=== PATIENT | female | born 1965 | race Caucasian/White ===

== ENCOUNTER 2020-11-16 10:58 | Inpatient (IN) | payer MEDICAID ==
[~2020-11-16] VITALS: Ht 167.6 cm; Wt 110.0 kg
[~2020-11-16 10:58] MED LIST: AMLO-257 PO; ARIP30TA PO; CHLO100T31 PO; LITH8SOL6 PO; VALP250S23 PO
[2020-11-16] MEDS ORDERED: TUBERCULIN, PURIFIED PROTEIN DERIVATIVE 5 TU/0.1 ML SYRINGE ID ONE (12:30)
[2020-11-16] MEDS ORDERED: OLANZapine 5 MG RAPDIS TABLET PO PRN (12:30)
[2020-11-16] MEDS ORDERED: GuaiFENesin/D-METHORPHAN [SUGAR-FREE] 200-20MG/10 ML SYRUP UDCUP PO PRN (12:30)
[2020-11-16] MEDS ORDERED: LOPERAMIDE HCL 2 MG CAPSULE PO PRN (12:30)
[2020-11-16] MEDS ORDERED: PROMETHAZINE HCL 25 MG TABLET PO PRN (12:30)
[2020-11-16] MEDS ORDERED: HydrOXYzine PAMOATE 50 MG CAPSULE PO PRN (12:30)
[2020-11-16 12:59] LABS: GLUCOMETER DEV NAME(LOC) POC.BV
[2020-11-16] MEDS ORDERED: PNEUMOCOCCAL VACCINE POLYVALENT 0.5 ML VIAL [PPSV23] IM. ONE (14:45)
[2020-11-16] MEDS: ACETAMINOPHEN 325 MG TABLET PO PRN (15:43)
[2020-11-16] MEDS: TRIHEXYPHENIDYL HCL 2 MG TABLET PO SCH (16:13)
[2020-11-16] MEDS: THIAMINE 100 MG TABLET PO SCH (16:13)
[2020-11-16] MEDS: CarBAMazepine 200 MG TABLET PO SCH (16:13)
[2020-11-16 16:20] VITALS: BP 140/79
[2020-11-16] MEDS: MELATONIN 5 MG TABLET PO SCH (20:10)
[2020-11-16] MEDS: HALOPERIDOL 5 MG TABLET PO SCH (20:10)
[2020-11-16] MEDS ORDERED: OLANZapine 5 MG RAPDIS TABLET PO SCH (21:00)
[2020-11-16] MEDS: ZOLPIDEM TARTRATE 10 MG TABLET PO PRN (22:24)
[2020-11-17 03:26] VITALS: BP 129/69
[2020-11-17 08:00] LABS: BASOPHILS % (AUTO) 0.4 % (0.0-2.0); EOSINOPHILS % (AUTO) 3.7 % (1.0-6.0); HEMATOCRIT 37.8 % (36-46); HEMOGLOBIN 12.8 g/dL (12.0-16.0); LYMPHOCYTES % (AUTO) 37.6 % (22.0-44.0); MEAN CORPUSCULAR HEMOGLOBIN 31.5 pg (26.0-34.0); MEAN CORPUSCULAR VOLUME 93 fL (80-100); MONOCYTES # (AUTO) 0.4 K/uL (0.1-1.0); MONOCYTES % (AUTO) 8.3 % (2.0-9.0); NEUTROPHILS # (AUTO) 2.7 K/uL (1.8-7.7); PLATELET COUNT (AUTO) 200 K/uL (150-450); RED BLOOD CELL COUNT(AUTO) 4.06 MIL/uL (4.00-5.20); RED CELL DISTRIBUTION WIDTH 12.5 % (11.5-14.5)
[2020-11-17] MEDS: TRIHEXYPHENIDYL HCL 2 MG TABLET PO SCH ×3 (08:07→16:06)
[2020-11-17] MEDS: OMEGA-3/DHA/EPA/FISH OIL 1,000 MG CAPSULE PO SCH (08:07)
[2020-11-17] MEDS: THIAMINE 100 MG TABLET PO SCH ×2 (08:07→16:06)
[2020-11-17] MEDS: CarBAMazepine 200 MG TABLET PO SCH ×2 (08:07→16:06)
[2020-11-17] MEDS: NALTREXONE HCL 50 MG TABLET PO SCH (08:07)
[2020-11-17] MEDS: MULTIVITAMINS WITH MINERALS, THERAPEUTIC TABLET PO SCH (08:11)
[2020-11-17] MEDS: FOLIC ACID 1 MG TABLET PO SCH (08:11)
[2020-11-17 08:16] LABS: HEMOGLOBIN A1C 5.2 % (3.8-5.6)
[2020-11-17 08:27] VITALS: BP 147/83
[2020-11-17 08:30] LABS: ALANINE AMINOTRANSFERASE 22 U/L (12-78); ALBUMIN 3.6 g/dL (3.4-5.0); ALKALINE PHOSPHATASE 99 U/L (46-116); ANION GAP 12 mmol/L (8-16); ASPARTATE AMINOTRANSFERASE 19 U/L (15-37); BILIRUBIN,TOTAL 0.3 mg/dL (0.1-1.0); CALCIUM, TOTAL 8.3 mg/dL (8.8-10.5); CARBON DIOXIDE 22 mmol/L (22-29); CHLORIDE 101 mmol/L (98-107); CHOL/HDL RATIO 3.9 (3.9-5.7); CHOLESTEROL 194 mg/dL (131-200); CREATININE 0.46 mg/dL (0.60-1.30); FREE T4 (FREE THYROXINE) 1.06 ng/dL (0.76-1.46); GLOMERULAR FILTR. RATE CALC > 60 mL/min (>60); GLUCOSE,RANDOM 147 mg/dL (70-110); HDL CHOLESTEROL 50 mg/dL (40-60); LDL CHOL (CALC.) 133 mg/dL (0-130); POTASSIUM 3.7 mmol/L (3.5-5.1); SODIUM SERUM 135 mmol/L (136-145); THYROID STIMULATING HORMONE 1.55 uIU/mL (0.36-3.74); TOTAL PROTEIN, SERUM 6.9 g/dL (6.4-8.2); TRIGLYCERIDES 55 mg/dL (15-150); UREA NITROGEN, BLOOD 7 mg/dL (7-18)
[2020-11-17] MEDS: MAGNESIUM HYDROXIDE SUSPENSION 30 ML UDCUP PO PRN (12:46)
[2020-11-17] MEDS ORDERED: OLANZapine 5 MG RAPDIS TABLET PO PRN (14:45)
[2020-11-17] MEDS: MAG HYDROX/AL HYDROX/SIMETH ES 30 ML SUSPENSION UDCUP PO PRN ×2 (15:06→23:06)
[2020-11-17 16:33] VITALS: BP 138/80
[2020-11-17] MEDS: LORazepam 2 MG TABLET PO PRN (16:34)
[2020-11-17] MEDS: MELATONIN 5 MG TABLET PO SCH (21:16)
[2020-11-17] MEDS: DIVALPROEX SODIUM 500 MG ER TABLET PO SCH (21:16)
[2020-11-17] MEDS: HALOPERIDOL 5 MG TABLET PO SCH (21:16)
[2020-11-18 01:06] VITALS: BP 132/73
[2020-11-18] MEDS: ZOLPIDEM TARTRATE 10 MG TABLET PO PRN ×2 (01:44→21:36)
[2020-11-18] MEDS: LORazepam 2 MG TABLET PO PRN (03:41)
[2020-11-18] MEDS: THIAMINE 100 MG TABLET PO SCH ×2 (08:13→16:24)
[2020-11-18] MEDS: TRIHEXYPHENIDYL HCL 2 MG TABLET PO SCH ×2 (08:13→12:37)
[2020-11-18] MEDS: NALTREXONE HCL 50 MG TABLET PO SCH (08:13)
[2020-11-18] MEDS: OMEGA-3/DHA/EPA/FISH OIL 1,000 MG CAPSULE PO SCH (08:14)
[2020-11-18] MEDS: FOLIC ACID 1 MG TABLET PO SCH (08:14)
[2020-11-18] MEDS: MULTIVITAMINS WITH MINERALS, THERAPEUTIC TABLET PO SCH (08:14)
[2020-11-18] MEDS: CarBAMazepine 200 MG TABLET PO SCH ×2 (08:14→16:24)
[2020-11-18 13:09] VITALS: BP 142/85
[2020-11-18 16:23] VITALS: BP 141/85
[2020-11-18] MEDS: MELATONIN 5 MG TABLET PO SCH (20:13)
[2020-11-18] MEDS: DIVALPROEX SODIUM 500 MG ER TABLET PO SCH (20:13)
[2020-11-18] MEDS: OLANZapine 5 MG RAPDIS TABLET PO SCH (20:14)
[2020-11-18] MEDS: MAG HYDROX/AL HYDROX/SIMETH ES 30 ML SUSPENSION UDCUP PO PRN (21:41)
[2020-11-19 06:39] VITALS: BP 143/83
[2020-11-19] MEDS: THIAMINE 100 MG TABLET PO SCH ×2 (08:17→16:31)
[2020-11-19] MEDS: OMEGA-3/DHA/EPA/FISH OIL 1,000 MG CAPSULE PO SCH (08:17)
[2020-11-19] MEDS: FOLIC ACID 1 MG TABLET PO SCH (08:17)
[2020-11-19] MEDS: CarBAMazepine 200 MG TABLET PO SCH ×2 (08:17→16:30)
[2020-11-19] MEDS: MULTIVITAMINS WITH MINERALS, THERAPEUTIC TABLET PO SCH (08:17)
[2020-11-19] MEDS: NALTREXONE HCL 50 MG TABLET PO SCH (08:17)
[2020-11-19] MEDS: MAGNESIUM HYDROXIDE SUSPENSION 30 ML UDCUP PO PRN (09:24)
[2020-11-19 09:31] VITALS: BP 146/90
[2020-11-19] MEDS: HALOPERIDOL 5 MG TABLET PO PRN (11:35)
[2020-11-19] MEDS: LORazepam 2 MG TABLET PO PRN (11:35)
[2020-11-19 16:25] VITALS: BP 140/82
[2020-11-19] MEDS: DIVALPROEX SODIUM 500 MG ER TABLET PO SCH (20:12)
[2020-11-19] MEDS: OLANZapine 5 MG RAPDIS TABLET PO SCH (20:13)
[2020-11-19] MEDS: MELATONIN 5 MG TABLET PO SCH (20:13)
[2020-11-19] MEDS: MAG HYDROX/AL HYDROX/SIMETH ES 30 ML SUSPENSION UDCUP PO PRN (20:41)
[2020-11-19] MEDS: ZOLPIDEM TARTRATE 10 MG TABLET PO PRN (20:41)
[2020-11-20 01:27] VITALS: BP 135/70
[2020-11-20] MEDS: HALOPERIDOL 5 MG TABLET PO PRN (04:49)
[2020-11-20] MEDS: LORazepam 2 MG TABLET PO PRN (08:10)
[2020-11-20 08:35] VITALS: BP 146/92
[2020-11-20] MEDS: CarBAMazepine 200 MG TABLET PO SCH ×2 (09:00→16:01)
[2020-11-20] MEDS: FOLIC ACID 1 MG TABLET PO SCH (09:13)
[2020-11-20] MEDS: OMEGA-3/DHA/EPA/FISH OIL 1,000 MG CAPSULE PO SCH (09:13)
[2020-11-20] MEDS: MULTIVITAMINS WITH MINERALS, THERAPEUTIC TABLET PO SCH (09:13)
[2020-11-20] MEDS: MAG HYDROX/AL HYDROX/SIMETH ES 30 ML SUSPENSION UDCUP PO PRN ×2 (09:13→16:46)
[2020-11-20] MEDS: NALTREXONE HCL 50 MG TABLET PO SCH (09:14)
[2020-11-20] MEDS: THIAMINE 100 MG TABLET PO SCH ×2 (09:14→16:01)
[2020-11-20] MEDS ORDERED: OLAN5TAB94 PO (13:44)
[2020-11-20] MEDS ORDERED: NALT50TA PO (13:44)
[2020-11-20] MEDS ORDERED: MELA5TAB3 PO (13:44)
[2020-11-20] MEDS ORDERED: DIVA-80 PO (13:44)
[2020-11-20] MEDS ORDERED: CARB200T6 PO (13:44)
[2020-11-20] MEDS ORDERED: OMEG-135 PO (13:44)
[2020-11-20] MEDS: ACETAMINOPHEN 325 MG TABLET PO PRN (13:51)
[2020-11-20 16:23] VITALS: BP 147/76
[2020-11-20] MEDS: DIVALPROEX SODIUM 500 MG ER TABLET PO SCH (20:01)
[2020-11-20] MEDS: MELATONIN 5 MG TABLET PO SCH (20:02)
[2020-11-20] MEDS: OLANZapine 5 MG RAPDIS TABLET PO SCH (20:02)
[2020-11-21 01:00] VITALS: BP 142/86
[2020-11-21] MEDS: LORazepam 2 MG TABLET PO PRN ×3 (01:02→18:09)
[2020-11-21 06:12] VITALS: BP 162/90
[2020-11-21] MEDS: HALOPERIDOL 5 MG TABLET PO PRN ×2 (07:55→18:09)
[2020-11-21] MEDS: OMEGA-3/DHA/EPA/FISH OIL 1,000 MG CAPSULE PO SCH (08:00)
[2020-11-21] MEDS: CarBAMazepine 200 MG TABLET PO SCH ×2 (08:00→17:05)
[2020-11-21] MEDS: THIAMINE 100 MG TABLET PO SCH ×2 (08:00→17:05)
[2020-11-21] MEDS: NALTREXONE HCL 50 MG TABLET PO SCH (08:00)
[2020-11-21] MEDS: MULTIVITAMINS WITH MINERALS, THERAPEUTIC TABLET PO SCH (08:00)
[2020-11-21] MEDS: FOLIC ACID 1 MG TABLET PO SCH (08:01)
[2020-11-21 08:23] LABS: COVID AG,FIA SOURCE NASOPHARYNGEAL
[2020-11-21 08:32] VITALS: BP 145/96
[2020-11-21 16:11] VITALS: BP 143/98
[2020-11-21] MEDS: MELATONIN 5 MG TABLET PO SCH (20:39)
[2020-11-21] MEDS: DIVALPROEX SODIUM 500 MG ER TABLET PO SCH (20:39)
[2020-11-21] MEDS: OLANZapine 5 MG RAPDIS TABLET PO SCH (20:41)
[2020-11-22 00:23] VITALS: BP 148/97
[2020-11-22] MEDS: CarBAMazepine 200 MG TABLET PO SCH ×2 (08:06→16:01)
[2020-11-22] MEDS: THIAMINE 100 MG TABLET PO SCH ×2 (08:06→16:01)
[2020-11-22] MEDS: NALTREXONE HCL 50 MG TABLET PO SCH (08:06)
[2020-11-22] MEDS: OMEGA-3/DHA/EPA/FISH OIL 1,000 MG CAPSULE PO SCH (08:06)
[2020-11-22] MEDS: FOLIC ACID 1 MG TABLET PO SCH (08:06)
[2020-11-22] MEDS: MULTIVITAMINS WITH MINERALS, THERAPEUTIC TABLET PO SCH (08:06)
[2020-11-22 08:10] VITALS: BP 144/100
[2020-11-22] MEDS: HALOPERIDOL 5 MG TABLET PO PRN (08:14)
[2020-11-22] MEDS: MAG HYDROX/AL HYDROX/SIMETH ES 30 ML SUSPENSION UDCUP PO PRN (09:52)
[2020-11-22 16:13] VITALS: BP 148/71
[2020-11-22] MEDS: MELATONIN 5 MG TABLET PO SCH (20:07)
[2020-11-22] MEDS: DIVALPROEX SODIUM 500 MG ER TABLET PO SCH (20:07)
[2020-11-22] MEDS: OLANZapine 5 MG RAPDIS TABLET PO SCH (20:07)
[2020-11-23 00:23] VITALS: BP 145/84
[2020-11-23] MEDS: MULTIVITAMINS WITH MINERALS, THERAPEUTIC TABLET PO SCH (08:10)
[2020-11-23] MEDS: HALOPERIDOL 5 MG TABLET PO PRN (08:10)
[2020-11-23] MEDS: OMEGA-3/DHA/EPA/FISH OIL 1,000 MG CAPSULE PO SCH (08:10)
[2020-11-23] MEDS: FOLIC ACID 1 MG TABLET PO SCH (08:10)
[2020-11-23] MEDS: THIAMINE 100 MG TABLET PO SCH ×2 (08:10→16:27)
[2020-11-23] MEDS: CarBAMazepine 200 MG TABLET PO SCH ×2 (08:10→16:27)
[2020-11-23] MEDS: NALTREXONE HCL 50 MG TABLET PO SCH (08:10)
[2020-11-23 08:32] VITALS: BP 167/83
[2020-11-23] MEDS: LORazepam 2 MG TABLET PO PRN (09:03)
[2020-11-23 16:23] VITALS: BP 134/75
== END 2020-11-23 16:40 | disposition home or self-care (01) | DRG 750 ==
LOC: B2S 12:42
PROVIDERS: ADMIT Psychiatry & Neurology Psychiatry; ATTEND Psychiatry & Neurology Psychiatry
DX: F25.1 Schizoaffective disorder, depressive type (principal); E55.9 Vitamin D deficiency, unspecified; F41.9 Anxiety disorder, unspecified; I10 Essential (primary) hypertension; M19.90 Unspecified osteoarthritis, unspecified site; Z20.822 Contact with and (suspected) exposure to COVID-19; E66.9 Obesity, unspecified; Z68.39 Body mass index [BMI] 39.0-39.9, adult; Z55.9 Problems related to education and literacy, unspecified; Z59.9 Problem related to housing and economic circumstances, unspecified; Z65.3 Problems related to other legal circumstances
CPT/HCPCS: 80053; 80061; 80156; 80164; 83036; 84439; 84443; 85025; 86592; A9575

== ENCOUNTER 2023-12-16 17:52 | Inpatient (IN) | payer MEDICAID ==
[~2023-12-16] VITALS: Ht 167.6 cm; Wt 116.7 kg
[~2023-12-16 17:52] MED LIST changes: -AMLO-257 PO; -ARIP30TA PO; +CARB200T6 PO; -CHLO100T31 PO; +DIVA-153 PO; -LITH8SOL6 PO; +MELA5TAB40 PO; +NALT50TA6 PO; +OLAN5TAB94 PO; +OMEG-135 PO; -VALP250S23 PO
[2023-12-16] MEDS ORDERED: LORazepam 2 MG/ML VIAL ONE (18:09)
[2023-12-16] MEDS ORDERED: DiphenhydrAMINE HCL 50 MG/ML VIAL ONE (18:10)
[2023-12-16] MEDS ORDERED: HALOPERIDOL LACTATE 5 MG/ML VIAL ONE (18:10)
[2023-12-16] MEDS: HALOPERIDOL LACTATE 5 MG/ML VIAL IM ONE (18:52)
[2023-12-16] MEDS: DiphenhydrAMINE HCL 50 MG/ML VIAL IM ONE (18:52)
[2023-12-16] MEDS: LORazepam 2 MG/ML VIAL IM ONE (18:53)
[2023-12-16] MEDS: ZOLPIDEM TARTRATE 10 MG TABLET PO PRN (23:44)
[2023-12-17] VITALS: BP 154/86; PULSE 84; RESP 16; TEMP 97.7; O2SAT 98
[2023-12-17] MEDS ORDERED: LORazepam 2 MG/ML VIAL ONE (07:18)
[2023-12-17] MEDS ORDERED: HALOPERIDOL LACTATE 5 MG/ML VIAL ONE (07:19)
[2023-12-17] MEDS ORDERED: DiphenhydrAMINE HCL 50 MG/ML VIAL ONE (07:19)
[2023-12-17] MEDS: LORazepam 2 MG/ML VIAL IM ONE (07:38)
[2023-12-17] MEDS: DiphenhydrAMINE HCL 50 MG/ML VIAL IM ONE (07:39)
[2023-12-17] MEDS: HALOPERIDOL LACTATE 5 MG/ML VIAL IM ONE (07:39)
[2023-12-17 08:49] VITALS: BP 137/84; PULSE 98; RESP 17; TEMP 98.2; O2SAT 96
[2023-12-17] MEDS ORDERED: QUET100T34 PO (12:14)
[2023-12-17] MEDS ORDERED: TRAZ-252 PO (12:14)
[2023-12-17] MEDS ORDERED: DIVA500T2 PO (12:14)
[2023-12-17] MEDS ORDERED: RISP3TAB35 PO (12:14)
[2023-12-17] MEDS: CarBAMazepine 200 MG TABLET PO SCH (16:22)
[2023-12-17] MEDS: DIVALPROEX SODIUM 500 MG DR TABLET PO SCH (16:22)
[2023-12-17] MEDS: RisperiDONE 3 MG TABLET PO SCH (20:13)
[2023-12-17] MEDS: QUEtiapine FUMARATE 100 MG TABLET PO SCH (20:13)
[2023-12-17 20:25] VITALS: BP 154/89; PULSE 100; RESP 18; TEMP 97.5; O2SAT 97
[2023-12-18 08:16] VITALS: BP 148/93; PULSE 88; RESP 16; TEMP 98; O2SAT 97
[2023-12-18 08:29] LABS: BASOPHILS % (AUTO) 0.5 % (0.0-2.0); EOSINOPHILS % (AUTO) 2.5 % (1.0-6.0); HEMATOCRIT 39.6 % (36-46); HEMOGLOBIN 13.4 g/dL (12.0-16.0); LYMPHOCYTES # (AUTO) 1.7 K/uL (1.0-4.8); LYMPHOCYTES % (AUTO) 34.6 % (22.0-44.0); MEAN CORPUSCULAR HEMOGLOBIN 31.2 pg (26.0-34.0); MEAN CORPUSCULAR HGB CONC 33.9 G/dL (31.0-37.0); MEAN CORPUSCULAR VOLUME 92 fL (80-100); MONOCYTES # (AUTO) 0.4 K/uL (0.1-1.0); MONOCYTES % (AUTO) 8.9 % (2.0-9.0); NEUTROPHILS # (AUTO) 2.7 K/uL (1.8-7.7); NEUTROPHILS % (AUTO) 53.5 % (40.0-70.0); PLATELET COUNT (AUTO) 237 K/uL (150-450)
[2023-12-18 09:04] LABS: ALANINE AMINOTRANSFERASE 17 U/L (12-78); ALBUMIN 3.6 g/dL (3.4-5.0); ALKALINE PHOSPHATASE 90 U/L (46-116); ANION GAP 11 mmol/L (8-16); ASPARTATE AMINOTRANSFERASE 19 U/L (15-37); BILIRUBIN,TOTAL 0.4 mg/dL (0.1-1.0); CALCIUM, TOTAL 8.6 mg/dL (8.8-10.5); CARBAMAZEPINE (TEGRETOL) 3.2 mcg/mL (4.0-12.0); CARBON DIOXIDE 26 mmol/L (22-29); CHLORIDE 97 mmol/L (98-107); CHOL/HDL RATIO 3.7 (3.9-5.7); CHOLESTEROL 186 mg/dL (131-200); CREATININE 0.54 mg/dL (0.60-1.30); FREE T4 (FREE THYROXINE) 1.14 ng/dL (0.76-1.46); GLOMERULAR FILTR. RATE CALC > 60 mL/min (>60); GLUCOSE,RANDOM 115 mg/dL (70-110); HCG,QUANTITATIVE 2 mIU/mL (0-6); HDL CHOLESTEROL 50 mg/dL (40-60); LDL CHOL (CALC.) 122 mg/dL (0-130); POTASSIUM 3.9 mmol/L (3.5-5.1); SODIUM SERUM 134 mmol/L (136-145); T4 (THYROXINE) 8.4 mcg/dL (4.7-13.3); TOTAL PROTEIN, SERUM 7.4 g/dL (6.4-8.2); TRIGLYCERIDES 70 mg/dL (15-150); UREA NITROGEN, BLOOD 10 mg/dL (7-18); VALPROIC ACID 45 mcg/mL (50-100)
[2023-12-18 09:27] LABS: HEMOGLOBIN A1C 5.4 % (3.8-5.6)
[2023-12-18 20:30] VITALS: BP 140/89; PULSE 84; RESP 18; TEMP 97.5; O2SAT 98
[2023-12-19 08:04] VITALS: BP 148/80; PULSE 94; RESP 16; TEMP 97.9; O2SAT 98
[2023-12-19 08:51] LABS: APPEARANCE,URINE HAZY (CLEAR); BILIRUBIN,URINE NEGATIVE (NEGATIVE); COLOR,URINE LIGHT YELLOW (YELLOW); GLUCOSE, URINE (UA) NEGATIVE (NEGATIVE); KETONES,URINE NEGATIVE (NEGATIVE); LEUKOCYTE ESTERASE ,URINE LARGE (NEGATIVE); NITRATE,URINE NEGATIVE (NEGATIVE); OCCULT BLOOD,URINE SMALL (NEGATIVE); PROTEIN,URINE NEGATIVE (NEGATIVE); SPECIFIC GRAVITIY, URINE 1.009 (1.003-1.030); UROBILINOGEN,URINE <=1.0 mg/dL (<=1.0)
[2023-12-19 08:56] LABS: BACTERIA,URINE Many /HPF (None Seen); SQUAMOUS EPITHELIAL CELL,UR Moderate /LPF (None Seen)
[2023-12-19 08:59] LABS: ALCOHOL, URINE DRUG SCREEN NEGATIVE (NEGATIVE); AMPHET/METH SCREEN,URINE NEGATIVE (NEGATIVE); BARBITURATE SCREEN, URINE NEGATIVE (NEGATIVE); BENZODIAZEPINES SCREEN,URINE NEGATIVE (NEGATIVE); CANNABINOID SCREEN,URINE NEGATIVE (NEGATIVE); COCAINE SCREEN,URINE NEGATIVE (NEGATIVE); METHADONE SCREEN, URINE NEGATIVE (NEGATIVE); OPIATE SCREEN,URINE NEGATIVE (NEGATIVE); PHENCYCLIDINE SCREEN,URINE NEGATIVE (NEGATIVE)
[2023-12-19 09:02] LABS: ANION GAP 8 mmol/L (8-16); CALCIUM, TOTAL 8.9 mg/dL (8.8-10.5); CARBON DIOXIDE 28 mmol/L (22-29); CHLORIDE 97 mmol/L (98-107); CREATININE 0.64 mg/dL (0.60-1.30); GLOMERULAR FILTR. RATE CALC > 60 mL/min (>60); GLUCOSE,RANDOM 152 mg/dL (70-110); POTASSIUM 4.4 mmol/L (3.5-5.1); SODIUM SERUM 133 mmol/L (136-145); UREA NITROGEN, BLOOD 14 mg/dL (7-18)
[2023-12-19 09:05] LABS: HEMOGLOBIN A1C 5.4 % (3.8-5.6)
[2023-12-19] MEDS: CIPROFLOXACIN HCL 500 MG TABLET PO SCH (16:06)
[2023-12-19 20:07] VITALS: BP 144/87; PULSE 79; RESP 16; TEMP 97.8; O2SAT 98
[2023-12-20] MEDS: LORazepam 2 MG TABLET PO PRN (08:20)
[2023-12-20 08:23] VITALS: BP 149/85; PULSE 99; RESP 18; TEMP 97.9; O2SAT 99
[2023-12-20 20:36] VITALS: BP 130/83; PULSE 80; RESP 20; TEMP 98; O2SAT 99
[2023-12-21 08:09] VITALS: BP 148/75; PULSE 98; RESP 18; TEMP 97.6; O2SAT 98
[2023-12-21] MEDS ORDERED: IBUPROFEN 400 MG TABLET PO PRN (13:00)
[2023-12-21] MEDS ORDERED: LOPERAMIDE HCL 2 MG CAPSULE PO PRN (13:00)
[2023-12-21] MEDS ORDERED: NICOTINE 14 MG/24 HOUR PATCH TD PRN (13:00)
[2023-12-21] MEDS ORDERED: ALBUTEROL SULFATE HFA 90 MCG/PUFF 8 GM INHALER IH PRN (13:00)
[2023-12-21] MEDS ORDERED: ONDANSETRON 4 MG TABLET PO PRN (13:00)
[2023-12-21] MEDS ORDERED: DOCUSATE SODIUM 100 MG CAPSULE PO PRN (13:00)
[2023-12-21] MEDS ORDERED: PETROLATUM,WHITE 28 GM JELLY TP PRN (13:00)
[2023-12-21] MEDS ORDERED: MAGNESIUM HYDROXIDE SUSPENSION 30 ML UDCUP PO PRN (13:00)
[2023-12-21] MEDS ORDERED: GuaiFENesin/D-METHORPHAN [SUGAR-FREE] 200-20MG/10 ML SYRUP UDCUP PO PRN (13:00)
[2023-12-21] MEDS ORDERED: ACETAMINOPHEN 325 MG TABLET PO PRN (13:00)
[2023-12-21] MEDS: MAG HYDROX/ALUMINUM HYD/SIMETH ES 30 ML SUSPENSION UDCUP PO PRN (13:02)
[2023-12-21 20:36] VITALS: BP 156/84; PULSE 84; RESP 18; TEMP 98.2; O2SAT 98
[2023-12-22 08:11] LABS: BASOPHILS % (AUTO) 0.6 % (0.0-2.0); EOSINOPHILS % (AUTO) 4.2 % (1.0-6.0); HEMATOCRIT 38.3 % (36-46); LYMPHOCYTES # (AUTO) 1.9 K/uL (1.0-4.8); LYMPHOCYTES % (AUTO) 37.4 % (22.0-44.0); MEAN CORPUSCULAR HEMOGLOBIN 31.1 pg (26.0-34.0); MEAN CORPUSCULAR HGB CONC 33.9 G/dL (31.0-37.0); MEAN CORPUSCULAR VOLUME 92 fL (80-100); MONOCYTES # (AUTO) 0.4 K/uL (0.1-1.0); MONOCYTES % (AUTO) 8.8 % (2.0-9.0); NEUTROPHILS # (AUTO) 2.4 K/uL (1.8-7.7); PLATELET COUNT (AUTO) 230 K/uL (150-450); RED BLOOD CELL COUNT(AUTO) 4.18 MIL/uL (4.00-5.20); RED CELL DISTRIBUTION WIDTH 12.6 % (11.5-14.5)
[2023-12-22 08:31] LABS: HEMOGLOBIN A1C 5.1 % (3.8-5.6)
[2023-12-22 08:38] LABS: ALANINE AMINOTRANSFERASE 14 U/L (12-78); ALBUMIN 3.4 g/dL (3.4-5.0); ALKALINE PHOSPHATASE 78 U/L (46-116); ANION GAP 7 mmol/L (8-16); ASPARTATE AMINOTRANSFERASE 13 U/L (15-37); BILIRUBIN,TOTAL 0.3 mg/dL (0.1-1.0); CALCIUM, TOTAL 8.5 mg/dL (8.8-10.5); CARBON DIOXIDE 28 mmol/L (22-29); CHLORIDE 97 mmol/L (98-107); CREATININE 0.54 mg/dL (0.60-1.30); GLOMERULAR FILTR. RATE CALC > 60 mL/min (>60); GLUCOSE,RANDOM 119 mg/dL (70-110); POTASSIUM 3.7 mmol/L (3.5-5.1); SODIUM SERUM 132 mmol/L (136-145); THYROID STIMULATING HORMONE 2.07 uIU/mL (0.36-3.74); TOTAL PROTEIN, SERUM 6.9 g/dL (6.4-8.2); UREA NITROGEN, BLOOD 9 mg/dL (7-18)
[2023-12-22 09:18] LABS: CHOL/HDL RATIO 3.5 (3.9-5.7); CHOLESTEROL 166 mg/dL (131-200); HDL CHOLESTEROL 47 mg/dL (40-60); LDL CHOL (CALC.) 102 mg/dL (0-130); TRIGLYCERIDES 84 mg/dL (15-150)
[2023-12-22 09:23] VITALS: BP 148/81; PULSE 88; RESP 18; TEMP 98.7; O2SAT 98
[2023-12-22] MEDS: HALOPERIDOL 5 MG TABLET PO PRN (10:49)
[2023-12-22 17:46] VITALS: BP 188/108; PULSE 98; RESP 17; TEMP 97.8
[2023-12-22] MEDS: AmLODIPine BESYLATE 5 MG TABLET PO SCH (17:52)
[2023-12-22 18:46] VITALS: BP 139/88; PULSE 86; RESP 17; TEMP 98
[2023-12-22 21:01] VITALS: BP 143/82; PULSE 86; RESP 16; TEMP 97.8; O2SAT 98
[2023-12-23 08:28] VITALS: BP 141/78; PULSE 93; RESP 16; TEMP 97.6; O2SAT 97
[2023-12-23 21:34] VITALS: BP 144/86; PULSE 96; RESP 18; TEMP 97.7; O2SAT 96
[2023-12-24 08:24] VITALS: BP 158/101; PULSE 91; RESP 18; TEMP 97.7; O2SAT 97
[2023-12-24 21:08] VITALS: BP 171/91; PULSE 84; RESP 18; TEMP 97.7; O2SAT 95
[2023-12-25 08:36] VITALS: BP 166/95; PULSE 83; RESP 16; TEMP 97.7; O2SAT 98
[2023-12-25 20:45] VITALS: BP 165/89; PULSE 80; RESP 18; TEMP 96.8; O2SAT 99
[2023-12-26] MEDS: AmLODIPine BESYLATE 10 MG TABLET PO SCH (08:16)
[2023-12-26 08:39] VITALS: BP 153/83; PULSE 75; RESP 17; TEMP 97.6; O2SAT 99
[2023-12-26 22:03] VITALS: BP 176/95; PULSE 78; RESP 18; TEMP 96.9; O2SAT 78
[2023-12-27 08:08] VITALS: BP 167/84; PULSE 79; RESP 17; TEMP 98.1; O2SAT 96
[2023-12-28 08:23] VITALS: BP 114/60; PULSE 79; RESP 18; TEMP 97.7; O2SAT 99
[2023-12-28 09:00] LABS: APPEARANCE,URINE CLEAR (CLEAR); BILIRUBIN,URINE NEGATIVE (NEGATIVE); COLOR,URINE LIGHT YELLOW (YELLOW); GLUCOSE, URINE (UA) NEGATIVE (NEGATIVE); KETONES,URINE NEGATIVE (NEGATIVE); LEUKOCYTE ESTERASE ,URINE NEGATIVE (NEGATIVE); NITRATE,URINE NEGATIVE (NEGATIVE); OCCULT BLOOD,URINE SMALL (NEGATIVE); PROTEIN,URINE NEGATIVE (NEGATIVE); SPECIFIC GRAVITIY, URINE 1.012 (1.003-1.030); UROBILINOGEN,URINE <=1.0 mg/dL (<=1.0)
[2023-12-28 09:13] LABS: BACTERIA,URINE None Seen /HPF (None Seen); SQUAMOUS EPITHELIAL CELL,UR Rare /LPF (None Seen); WBC,URINE None Seen /HPF (0-5)
[2023-12-28 09:14] LABS: ALCOHOL, URINE DRUG SCREEN NEGATIVE (NEGATIVE); AMPHET/METH SCREEN,URINE NEGATIVE (NEGATIVE); BARBITURATE SCREEN, URINE NEGATIVE (NEGATIVE); BENZODIAZEPINES SCREEN,URINE NEGATIVE (NEGATIVE); CANNABINOID SCREEN,URINE NEGATIVE (NEGATIVE); COCAINE SCREEN,URINE NEGATIVE (NEGATIVE); METHADONE SCREEN, URINE NEGATIVE (NEGATIVE); OPIATE SCREEN,URINE NEGATIVE (NEGATIVE); PHENCYCLIDINE SCREEN,URINE NEGATIVE (NEGATIVE)
[2023-12-28 20:29] VITALS: BP 172/103; PULSE 81; RESP 18; TEMP 96.9; O2SAT 98
[2023-12-28] MEDS: CloNIDine HCL 0.1 MG TABLET PO PRN (20:41)
[2023-12-28 22:09] VITALS: BP 148/76; PULSE 74; RESP 17; TEMP 96.4; O2SAT 96
[2023-12-29 08:20] VITALS: RESP 18
[2023-12-29 21:00] VITALS: BP 144/76; PULSE 76; RESP 18; TEMP 97.4
[2023-12-30 08:20] VITALS: BP 129/65; PULSE 75; RESP 17; TEMP 97.9; O2SAT 100
[2023-12-30 20:27] VITALS: BP 134/76; PULSE 77; RESP 18; TEMP 96.9; O2SAT 99
[2023-12-31 08:06] VITALS: BP 128/91; PULSE 97; RESP 17; TEMP 97.1; O2SAT 97
[2023-12-31 20:27] VITALS: BP 126/77; PULSE 82; RESP 17; TEMP 97.5; O2SAT 97
[2024-01-01 08:17] VITALS: RESP 18
[2024-01-01 20:24] VITALS: BP 134/79; PULSE 84; RESP 17; TEMP 96.9; O2SAT 99
[2024-01-02 08:04] VITALS: RESP 18
[2024-01-02 08:20] VITALS: BP 138/80; PULSE 78; RESP 18; TEMP 97.7
[2024-01-02 20:00] VITALS: BP 138/80; PULSE 78; RESP 18; TEMP 97.7
[2024-01-03 08:37] VITALS: RESP 16
[2024-01-03 20:06] VITALS: BP 153/83; PULSE 88; RESP 16; TEMP 96.8; O2SAT 98
[2024-01-04 08:25] VITALS: RESP 18
[2024-01-04 20:08] VITALS: BP 130/88; PULSE 83; RESP 17; TEMP 98; O2SAT 100
[2024-01-05] MEDS: VALPROIC ACID 250 MG/5 ML SOLUTION UDCUP PO SCH (08:03)
[2024-01-05 08:06] VITALS: BP 137/90; PULSE 94; RESP 18; TEMP 97.4; O2SAT 97
[2024-01-05 21:04] VITALS: BP 139/86; PULSE 73; RESP 18; TEMP 97.4; O2SAT 99
[2024-01-06 08:06] VITALS: RESP 18
[2024-01-06 16:11] VITALS: BP 134/88; PULSE 86; RESP 18; TEMP 98.3; O2SAT 98
[2024-01-06 22:32] VITALS: RESP 18
[2024-01-07 08:04] VITALS: RESP 16
[2024-01-07 23:08] VITALS: BP 159/90; PULSE 85; RESP 18; TEMP 98
[2024-01-08 08:16] VITALS: RESP 16
[2024-01-08 20:33] VITALS: BP 145/86; PULSE 77; RESP 18; TEMP 98
[2024-01-09 08:37] VITALS: BP 130/80; PULSE 78; RESP 16; TEMP 97.4; O2SAT 97
[2024-01-09 20:23] VITALS: BP 162/108; PULSE 73; RESP 16; TEMP 97.5; O2SAT 99
[2024-01-09 21:30] VITALS: BP 162/100; PULSE 73; RESP 16; TEMP 97.5; O2SAT 99
[2024-01-10 08:24] VITALS: RESP 16
[2024-01-10 20:15] VITALS: BP 165/94; PULSE 83; RESP 18; TEMP 97.6; O2SAT 98
[2024-01-11 08:08] VITALS: RESP 18
[2024-01-11 20:22] VITALS: BP 151/97; PULSE 83; RESP 17; TEMP 97.5; O2SAT 97
[2024-01-12 08:19] VITALS: BP 147/95; PULSE 97; RESP 16; TEMP 97.8; O2SAT 99
[2024-01-12 21:32] VITALS: BP 142/90; PULSE 88; RESP 16; TEMP 97; O2SAT 100
[2024-01-13 08:34] VITALS: BP 143/78; PULSE 80; RESP 16; TEMP 97.8; O2SAT 96
[2024-01-13] MEDS: DIVALPROEX SODIUM 500 MG DR TABLET PO SCH (16:05)
[2024-01-13 20:53] VITALS: BP 151/94; PULSE 80; RESP 16; TEMP 97.1; O2SAT 97
[2024-01-14 08:41] VITALS: BP 139/88; PULSE 76; RESP 18; TEMP 97.2; O2SAT 98
[2024-01-14 20:12] VITALS: BP 148/89; PULSE 82; RESP 18; TEMP 96.9; O2SAT 99
[2024-01-15 08:20] VITALS: RESP 18
[2024-01-15 20:26] VITALS: BP 116/72; PULSE 83; RESP 18; TEMP 96.5; O2SAT 97
[2024-01-16 08:16] VITALS: RESP 18
[2024-01-16] MEDS ORDERED: DIVA-112 PO (11:55)
[2024-01-16] MEDS ORDERED: RISP3TAB77 PO (11:55)
[2024-01-16] MEDS ORDERED: QUET100T34 PO (11:55)
[2024-01-16] MEDS ORDERED: CARB-92 PO (11:55)
== END 2024-01-16 19:04 | disposition home or self-care (01) | DRG 750 ==
LOC: B3A 18:22
PROVIDERS: ADMIT Psychiatry & Neurology Child & Adolescent Psychiatry; ATTEND Psychiatry & Neurology Child & Adolescent Psychiatry
PROC: GZHZZZZ Group Psychotherapy (ICD-10-PCS; principal; 2023-12-17)
PROC: GZ56ZZZ Individual Psychotherapy, Supportive (ICD-10-PCS; 2023-12-17)
DX: F20.0 Paranoid schizophrenia (principal); E87.1 Hypo-osmolality and hyponatremia; E66.01 Morbid (severe) obesity due to excess calories; R73.9 Hyperglycemia, unspecified; Z68.41 Body mass index [BMI] 40.0-44.9, adult; I10 Essential (primary) hypertension; N39.0 Urinary tract infection, site not specified; F14.10 Cocaine abuse, uncomplicated; F31.9 Bipolar disorder, unspecified; Z79.899 Other long term (current) drug therapy
CPT/HCPCS: 80048; 80053; 80061; 80156; 80164; 80307; 81001; 83036; 84436; 84439; 84443; 84702; 85025; 86592; 87086; 87186; J1200; J1630; J2060